=== PATIENT | male | born 1995 | race Caucasian/White ===

== ENCOUNTER 2021-03-08 00:41 | Observation (INO) ==
[2021-03-08 01:39] LABS: Basophils % 0.5 %; Hematocrit 35.7 % (37.5-50.1); Hemoglobin 12.4 g/dL (12.9-16.9); Immature Granulocytes % 0.6 % (0-4); Lymphocytes # 0.3 K/mcL (0.6-4.6); Mean Corpuscular HGB Conc 34.7 g/dL (31.6-35.5); Mean Corpuscular Hemoglobin 33.4 pg (28.0-33.3); Mean Corpuscular Volume 96.2 fL (83.0-100.0); Mean Platelet Volume 10.7 fL (9.4-12.4); Monocytes # 0.6 K/mcL (0.0-1.3); Monocytes % 9.8 %; Neutrophils # 5.6 K/mcL (1.6-8.9); Platelet Count 144 K/mcL (140-400); Red Blood Count 3.71 M/mcL (4.19-5.50); Red Cell Distribution Width 11.3 % (11.5-14.5); Segmented Neutrophils % 85.1 %; White Blood Count 6.5 K/mcL (4.3-11.1)
[2021-03-08 01:55] LABS: BUN/Creatinine Ratio 5 (6-26); Blood Urea Nitrogen 5 mg/dL (6-20); Calcium 9.8 mg/dL (8.6-10.3); Carbon Dioxide 21 mEq/L (23-29); Chloride 87 mEq/L (98-107); Glucose 179 mg/dL (70-105); Magnesium 2.3 mg/dL (1.6-2.6); Osmolality,Calculated 274 (280-300); Potassium 3.1 mEq/L (3.5-5.1); Sodium 131 mEq/L (136-145); eGFR For African Americans > 60 (> 60); eGFR For Non-African Americans > 60 (> 60)
[2021-03-08 02:20] LABS: Amphetamine Screen,Urine Positive ng/mL (Cutoff=1000); Barbiturate Screen,Urine Negative ng/mL (Cutoff=200); Benzodiazepines Screen,Urine Negative ng/mL (Cutoff=200); Cannabinoid Screen,Urine Negative ng/mL (Cutoff = 50); Cocaine Screen,Urine Positive ng/mL (Cutoff= 300); Opiate Screen,Urine Negative ng/mL (Cutoff=300); Phencyclidine Screen,Urine Negative ng/mL (Cutoff=25)
[2021-03-08 02:36] LABS: Bacteria,Urine Few per hpf (None-Few); Bilirubin,Urine Negative (Negative); Blood,Urine Moderate (Negative); Clarity,Urine Clear (Clear); Color,Urine Light-Yellow (Yellow); Glucose,Urine (UA) Normal (Normal); Hyaline Casts,Urine Many per lpf (None Seen); Ketones,Urine 40 mg/dL (Negative); Leukocyte Esterase,Urine Negative (Negative); Mucus,Urine Few per lpf (None-Few); Nitrite,Urine Negative (Negative); Protein,Urine 50 mg/dL (Neg-Trace); RBC,Urine 0-3 per hpf (0-3); Specific Gravity,Urine 1.009 (1.010-1.025); Squamous Epithelial Cell,Urine Few per hpf (None-Few); Urobilinogen,Urine Normal (Normal); WBC,Urine 0-3 per hpf (0-3)
[2021-03-08 03:15] LABS: Ethanol < 10 mg/dL (Less than 10)
[2021-03-08] MEDS ORDERED: levETIRAcetam 250 MG TABLET PO ONE (07:53)
[2021-03-08] MEDS ORDERED: Mag Hydrox/Al Hydrox/Simeth 30 ML UDC PO PRN (08:01)
[2021-03-08] MEDS ORDERED: Acetaminophen 325 MG TABLET PO PRN (08:01)
[2021-03-08] MEDS ORDERED: Ondansetron ODT 4 MG TAB.RAPDIS SL PRN (08:01)
[2021-03-08] MEDS ORDERED: Naloxone 0.4 MG/ML INJ IVP PRN (08:01)
[2021-03-08] MEDS ORDERED: MOM Conc 10 ML UD.LIQ PO PRN (08:01)
[2021-03-08] MEDS ORDERED: Ringers Solution, Lactated 1,000 ML IVC SCH (08:15)
[2021-03-08] MEDS ORDERED: Ketorolac 30 MG/ML VIAL IVP ONE (09:11)
[2021-03-08] MEDS ORDERED: *HR* LORazepam 2 MG/ML VIAL IVP PRN ×3 (09:39)
[2021-03-08] MEDS ORDERED: Ketorolac 30 MG/ML VIAL IVP PRN (11:44)
[2021-03-08] MEDS: Cortisporin *EAR*Susp 10 ML BOTTLE RIGHT EAR SCH ×3 (12:39→19:54)
[2021-03-08] MEDS: Amoxicillin 500 MG CAPSULE PO SCH ×3 (12:39→20:00)
[2021-03-08] MEDS: levETIRAcetam 250 MG TABLET PO SCH (16:51)
[2021-03-08] MEDS: Thiamine (B-1) 100 MG, Folic Acid 1 MG, MVI, adult with vitamin K 10 ML in 0.9 % Sodi... IVPB SCH (16:51)
[2021-03-09] MEDS: levETIRAcetam 250 MG TABLET PO SCH ×2 (05:20→16:20)
[2021-03-09 06:57] LABS: Hematocrit 34.6 % (37.5-50.1); Immature Platelets 7.5 % (1.1-6.1); Mean Corpuscular HGB Conc 34.7 g/dL (31.6-35.5); Mean Corpuscular Hemoglobin 34.5 pg (28.0-33.3); Mean Corpuscular Volume 99.4 fL (83.0-100.0); Mean Platelet Volume 11.3 fL (9.4-12.4); Red Blood Count 3.48 M/mcL (4.19-5.50); Red Cell Distribution Width 11.2 % (11.5-14.5); White Blood Count 5.2 K/mcL (4.3-11.1)
[2021-03-09] MEDS ORDERED: *HR* Enoxaparin 40 MG/0.4 ML SYRINGE SQ SCH (07:00)
[2021-03-09 07:15] LABS: BUN/Creatinine Ratio 6 (6-26); Blood Urea Nitrogen 8 mg/dL (6-20); Calcium 9.4 mg/dL (8.6-10.3); Carbon Dioxide 28 mEq/L (23-29); Chloride 94 mEq/L (98-107); Glucose 87 mg/dL (70-105); Magnesium 2.1 mg/dL (1.6-2.6); Osmolality,Calculated 276 (280-300); Sodium 134 mEq/L (136-145); eGFR For African Americans > 60 (> 60); eGFR For Non-African Americans > 60 (> 60)
[2021-03-09] MEDS: Cortisporin *EAR*Susp 10 ML BOTTLE RIGHT EAR SCH ×3 (07:46→16:20)
[2021-03-09] MEDS: Amoxicillin 500 MG CAPSULE PO SCH ×2 (07:46→13:50)
[2021-03-09] MEDS ORDERED: Divalproex (12 HR) 500 MG TABLET PO SCH (12:30)
[2021-03-09 14:47] VITALS: BP 152/70
[2021-03-09] MEDS: Thiamine (B-1) 100 MG, Folic Acid 1 MG, MVI, adult with vitamin K 10 ML in 0.9 % Sodi... IVPB SCH (16:20)
== END 2021-03-09 18:05 | disposition left against medical advice (07) ==
LOC: EMEROOARM 00:41 → 3BNU 00:41 → SUATTDRO 09:06 → 3BNU 09:57
PROVIDERS: ADMIT Internal Medicine; ATTEND Nurse Practitioner